=== PATIENT | female | born 1960 | race Caucasian/White ===

== ENCOUNTER 2017-03-07 10:06 | Emergency (ER) | payer BC ==
--- NOTE | 2017-03-07 11:46 | UC ---
Ear Complaint HPI - HPI Summary HPI Summary: 56 year old female presents with complains of right ear pain and sinus congestion. - History of Current Complaint Stated Complaint: RIGHT EAR COMPLAINT Time Seen by Provider: 03/07/17 11:46 Hx Obtained From: Patient Onset/Duration: Sudden Onset Severity Initially: Moderate Severity Currently: Moderate Pain Scale Used: 0-10 Numeric - 5 - Allergies/Home Medications Allergies/Adverse Reactions: Allergies Allergy/AdvReac Type Severity Reaction Status Date / Time Amoxicillin [From Augmentin] Allergy Intermediate Hives Verified 03/07/17 11:44 Clavulanic Acid Allergy Intermediate Hives Verified 03/07/17 11:44 [From Augmentin] PMH/Surg Hx/FS Hx/Imm Hx Previously Healthy: Yes - Surgical History Surgical History: Yes Surgery Procedure, Year, and Place: GALL BLADDER - Family History Known Family History: Positive: None - Social History Alcohol Use: Weekly Substance Use Type: None Smoking Status (MU): Never Smoked Tobacco Review of Systems Constitutional: Negative Skin: Negative Eyes: Negative ENT: Negative Respiratory: Negative Cardiovascular: Negative Gastrointestinal: Negative Genitourinary: Negative Motor: Negative Neurovascular: Negative Musculoskeletal: Negative Neurological: Negative Psychological: Negative All Other Systems Reviewed And Are Negative: Yes Physical Exam Triage Information Reviewed: Yes Appearance: Well-Appearing Vital Signs Reviewed: Yes Eye Exam: Normal ENT Exam: Normal ENT: Positive: Nasal congestion, Sinus tenderness Dental Exam: Normal Neck exam: Normal Neck: Positive: 1 Respiratory Exam: Normal Cardiovascular Exam: Normal Abdominal Exam: Normal Musculoskeletal Exam: Normal Neurological Exam: Normal Psychological Exam: Normal Skin Exam: Normal Ear Complaint Course/Dx - Differential Dx/Diagnosis Provider Diagnoses: right ear pain. sinusitis Discharge - Discharge Plan Condition: Stable Disposition: HOME Prescriptions: Azithromyxin PRABHU (NF) [Z-Prabhu (Zithromax) 250 mg tabs #6] 2 tab PO .TODAY, THEN 1 DAILY #6 tab Methylprednisolone [Medrol Dosepak 4 MG*] 4 mg PO .SEE PRABHU INSTRUCTION #21 tab Neomyc/Polym/HC 1% OTIC SUSP* [Cortisporin Otic Susp 1%*] 4 drop LEFT EAR QID # 1 btl Patient Education Materials: Earache (ED) Referrals: Elaine PEARL,Cory Canela [Primary Care Provider] - Lucio Baig MD [Medical Doctor] -
[2017-03-07 11:50] VITALS: BP 139/67
== END 2017-03-07 12:06 | disposition home or self-care (01) ==
LOC: UCCORT 10:06
DX: H92.01 Otalgia, right ear (principal); J32.9 Chronic sinusitis, unspecified; Z90.49 Acquired absence of other specified parts of digestive tract; Z88.1 Allergy status to other antibiotic agents
CPT/HCPCS: 99212; G0463

== ENCOUNTER 2017-06-26 07:09 | Emergency (ER) | payer BC ==
[2017-06-26 07:29] VITALS: BP 129/73
--- NOTE | 2017-06-26 07:39 | UC ---
Complaint Female HPI - HPI Summary HPI Summary: C/O UTI symptoms since tuesday night. Last UTI 2 years ago. Did take Azo 2 days ago. - History Of Current Complaint Stated Complaint: URINARY Time Seen by Provider: 06/26/17 07:17 Hx Obtained From: Patient Hx Last Menstrual Period: 06/13/17 ?: No Onset/Duration: Sudden Onset, Lasting Days - 2 Timing: Constant Severity Initially: Moderate Severity Currently: Moderate Pain Intensity: 5 Character: Burning, Cramping Aggravating Factor(s): Urination Associated Signs And Symptoms: Negative: Fever, Back Pain, Vaginal Discharge Related Hx: Similar Episode/Dx as: - UTI - Allergies/Home Medications Allergies/Adverse Reactions: Allergies Allergy/AdvReac Type Severity Reaction Status Date / Time amoxicillin Allergy Hives Verified 06/26/17 07:30 clavulanic acid Allergy Hives Verified 06/26/17 07:30 Home Medications: Home Medications Progesterone CAP (NF) [Prometrium (NF)] 100 mg PO DAILY 06/26/17 [History Confirmed 06/26/17] PMH/Surg Hx/FS Hx/Imm Hx Previously Healthy: Yes - Surgical History Surgical History: Yes Surgery Procedure, Year, and Place: GALL BLADDER. [place] teeth. D&C - Family History Known Family History: Positive: Cardiac Disease, Hypertension, Diabetes - Social History Occupation: Employed Full-time Lives: With Family Alcohol Use: Weekly Substance Use Type: None Smoking Status (MU): Never Smoked Tobacco Review of Systems Genitourinary: Dysuria, Hematuria, Frequency, Urgency Is Patient Immunocompromised?: No All Other Systems Reviewed And Are Negative: Yes Physical Exam Triage Information Reviewed: Yes Appearance: Well-Appearing, No Pain Distress, Well-Nourished Vital Signs: Initial Vital Signs Temp 98.1 F 06/26/17 07:21 Pulse 73 06/26/17 07:21 Resp 18 06/26/17 07:21 BP 129/73 06/26/17 07:21 Pulse Ox 100 06/26/17 07:21 Vital Signs Reviewed: Yes Eyes: Positive: Conjunctiva Clear Neck exam: Normal Respiratory Exam: Normal Cardiovascular Exam: Normal Abdomen Description: Positive: No Organomegaly, Soft. Negative: Nontender - mild suprapubic tenderness, CVA Tenderness (R), CVA Tenderness (L) Bowel Sounds: Positive: Present Musculoskeletal Exam: Normal Neurological Exam: Normal Psychological Exam: Normal Skin Exam: Normal Complaint Female Dx - Differential Dx/Diagnosis Differential Diagnosis/HQI/PQRI: Appendicitis, Ureteral Stone, Urinary Tract Infection Provider Diagnoses: Acute cystitis with hematuria Discharge - Sign-Out/Discharge Documenting (check all that apply): Discharge - Discharge Plan Condition: Stable Disposition: HOME Prescriptions: Sulfamethox/Trimethoprim DS* [Bactrim DS 800/160 TAB*] 1 tab PO BID #10 tab Patient Education Materials: Urinary Tract Infection in Women (ED), Sulfamethoxazole/Trimethoprim (By mouth) Referrals: Elaine PEARL,Cory Canela [Primary Care Provider] - - Billing Disposition and Condition Condition: STABLE Disposition: HOME
[2017-06-26] MEDS ORDERED: Sulfamethox/Trimethoprim DS 800/160* TAB PO ONE (07:44)
== END 2017-06-26 07:57 | disposition home or self-care (01) ==
LOC: UCCORT 07:09
DX: N30.01 Acute cystitis with hematuria (principal); Z88.3 Allergy status to other anti-infective agents; Z88.8 Allergy status to other drugs, medicaments and biological substances
CPT/HCPCS: 81003; 87077; 87086; 87186; 99212; A9270-GY; G0463

== ENCOUNTER 2018-06-26 08:08 | Emergency (ER) | payer BC ==
--- OUTSIDE RECORDS SUMMARY | 2018-06-26 08:36 | XMS REPORT | Continuity of Care Document ---
:1960 External Reference #:[id number] Author Name Yomaira Wheatley MD Address [address] [place] [address] Care Team Providers Name Role Phone Rocio Hardy C.N.M. Care Team Information Pediatric Allergist Unavailable Cory Henry M.D. Primary Care Physician Unavailable Payers Date Identification Numbers Payment Provider Subscriber Policy Number: [id number] [facility] [employer] Yuly Grub[employer] Name: [place] [address] [address] PayID: [id number] [place] [id number] Expires: 2016 Policy Number: [id number] [facility] Sumanth David PayID: [id number] [address] [address] [place] [id number] Advance Directives Description No Information Available Problems Active Problems Provider Date History of chronic urinary tract infection Yomaira Wheatley MD Onset: 02/2017 Candidal vulvovaginitis Yomaira Wheatley MD Onset: 02/06/2015 Urethral stricture Yomaira Wheatley MD Onset: 02/06/2015 Microscopic hematuria Yomaira Wheatley MD Onset: 02/06/2015 Pain in female genitalia on intercourse Yomaira Wheatley MD Onset: 2014 Nocturia Yomaira Wheatley MD Onset: 02/06/2015 Urgent desire to urinate Yomaira Wheatley MD Onset: 02/06/2015 Increased frequency of urination Yomaira Wheatley MD Onset: 02/06/2015 Atrophic vaginitis Yomaira Wheatley MD Onset: 02/06/2015 Family History Date Family Member(s) Observation Comments Mother Breast Cancer Mother High Blood Pressure Mother Heart Attack Social History Type Date Description Comments Sex Unknown Marital Status Patient is Occupation Outreach Clinician Tobacco Use Reviewed: 12/20/17 Never Smoked Cigarettes Smoking Status Reviewed: 06/22/18 Never Smoked Cigarettes ETOH Use Consumes 2 glasses of wine per week Allergies, Adverse Reactions, Alerts Active Allergies Reaction Severity Comments Date Augmentin 02/06/2015 Medications Active Medications SIG Qnty Indications Ordering Date Provider Estrace 1/4 gram to 42.500gm N95.2 Yomaira Frausto 02/06/2015 0.1mg/GM periurethral area MD Corry Cream daily Ibuprofen Unknown Progesterone Rex, Micronized [place] 200mg Capsules Estradiol Rex, [place] 0.05mg/24HR Patches Biweek Zyrtec Allergy 1 by mouth every Unknown 10mg day Capsules History Medications Premarin 1/4 gram to 30gm Yomaira Frausto 12/22/2017 - 0.625mg/GM periurethral area MD Corry 06/22/2018 Cream daily Ciprofloxacin HCL 1 by mouth twice a 6tabs Yomaira Frausto 06/29/2017 - 500mg day x 3 days MD Corry 12/07/2017 Tablets Fluconazole 1 by mouth today, 2tabs B37.3 Yomaira Frausto 02/06/2015 - 150mg repeat in 72 hours MD Corry 03/17/2015 Tablets Lorazepam Cory Henry, - 0.5mg Tablets M.D. 12/07/2017 Zolpidem Tartrate Cory Henry, - 10mg M.D. 06/18/2015 Tablets Abbi Allergy Unknown - 11/16/2016 Azelastine HCL Unknown - (Nasal) 12/07/2017 Immunizations Description No Information Available Vital Signs Date Vital Result Comment 12/20/2017 3:39pm Height 62 inches 5'2" Weight 130.00 lb Weight 58.968 kg BMI (Body Mass Index) 23.8 kg/m2 BP Systolic 120 mmHg BP Diastolic 68 mmHg 11/16/2016 3:23pm Height 62 inches 5'2" Weight 128.00 lb Weight 58.061 kg BMI (Body Mass Index) 23.4 kg/m2 BP Systolic 122 mmHg BP Diastolic 70 mmHg 02/06/2015 9:23am Height 62 inches 5'2" Weight 122.00 lb Weight 55.339 kg BMI (Body Mass Index) 22.3 kg/m2 BP Systolic 120 mmHg BP Diastolic 80 mmHg Results Test Date Facility Test Result H/L Range Note 230 Ua Routine 06/22/2018 [facility] Ua Glucose Negative REF TO DR ADDRESS ON ORDER FOR (315)- - Ua Protein Negative Ua Nitrite Negative Ua Leuko Negative Ua Blood Small * Ua Color Not Entered Ua Ketones Negative Ua Clarity Not Entered Ua Specific [place] 1.010 1.003-1.030 Ua PH 5.5 5.0-7.5 Ua Bilirubin Negative Ua Urobilinogen 0.2 E.U./dL 0.0-1.0 230 Ua Routine 12/20/2017 [facility] Ua Glucose Negative REF TO DR ADDRESS ON ORDER FOR (315)- - Ua Protein Negative Ua Nitrite Negative Ua Leuko Negative Ua Blood Small * Ua Color Not Entered Ua Ketones Negative Ua Clarity Not Entered Ua Specific [place] 1.010 1.003-1.030 Ua PH 6.5 5.0-7.5 Ua Bilirubin Negative Ua Urobilinogen 0.2 E.U./dL 0.0-1.0 230 Ua Routine 11/16/2016 [facility] Ua Glucose Negative REF TO DR ADDRESS ON ORDER FOR (315)- - Ua Protein Negative Ua Nitrite Negative Ua Leuko Negative Ua Blood Trace-intact * Ua Color Not Entered Ua Ketones Negative Ua Clarity Not Entered Ua Specific [place] <=1.005 1.003-1.030 Ua PH 5.5 5.0-7.5 Ua Bilirubin Negative Ua Urobilinogen 0.2 E.U./dL 0.0-1.0 230 Ua Routine 06/19/2015 [facility] Ua Glucose Negative REF TO DR ADDRESS ON ORDER FOR (315)- - Ua Protein Negative Ua Nitrite Negative Ua Leuko Negative Ua Blood Small * Ua Color Not Entered Ua Ketones Negative Ua Clarity Not Entered Ua Specifici [place] <=1.005 1.003-1.030 Ua PH 5.5 5.0-7.5 Ua Bilirubin Negative Ua Urobilinogen 0.2 E.U./dL 0.0-1.0 Urine Microscopy 03/18/2015 [facility] Urine WBC NEG /HPF 0 - 5 [address] [place], [place] [address] [phone] Urine RBC NEG /HPF 0-2 Bacteria NEG /HPF Neg Crystals NEG /HPF Neg Epithelial Cells 1+ /HPF Neg Sperm NEG /HPF Neg Yeast NEG /HPF Neg 230 Ua Routine 03/18/2015 [facility] Ua Glucose Negative REF TO DR ADDRESS ON ORDER FOR (315)- - Ua Protein Negative Ua Nitrite Negative Ua Leuko Negative Ua Blood Small * Ua Color Not Entered Ua Ketones Negative Ua Clarity Not Entered Ua Specific [place] <=1.005 1.003-1.030 Ua PH 5.5 5.0-7.5 Ua Bilirubin Negative Ua Urobilinogen 0.2 E.U./dL 0.0-1.0 Urine Microscopy 02/06/2015 [facility] Urine WBC 0-2 /HPF 0 - 5 [address] [place], [place] [id number] [phone] Urine RBC 0-2 /HPF 0-2 Bacteria RARE /HPF Neg Crystals NEG /HPF Neg Epithelial Cells RARE /HPF Neg Sperm NEG /HPF Neg Yeast NEG /HPF Neg 230 Ua Routine 02/06/2015 [facility] Ua Glucose Negative REF TO DR ADDRESS ON ORDER FOR (315)- - Ua Protein Negative Ua Nitrite Negative Ua Leuko Negative Ua Blood Small * Ua Color Not Entered Ua Ketones Negative Ua Clarity Not Entered Ua Specific [place] <=1.005 1.003-1.030 Ua PH 5.0 5.0-7.5 Ua Bilirubin Negative Ua Urobilinogen 0.2 E.U./dL 0.0-1.0 Procedures Date Code Description Status 02/06/2015 78278 Bladder Scan, Post Voiding Residual Urine Completed Encounters Type Date Location Provider Dx Diagnosis Office Visit 06/22/2018 Deisy Frausto Z87.440 Personal history 3:45p Urology MD Corry of urinary (tract) infections N95.2 Postmenopausal atrophic vaginitis R35.0 Frequency of micturition R35.1 Nocturia Office Visit 12/20/2017 3:20p Deisy Frausto [id number] Personal history Urology MD Corry of urinary (tract) infections N95.2 Postmenopausal atrophic vaginitis R35.0 Frequency of micturition R35.1 Nocturia Office Visit 11/16/2016 3:10p [facility]/ Juhi Frausto [id number] Personal history Urology MD Corry of urinary (tract) infections N95.2 Postmenopausal atrophic vaginitis R35.0 Frequency of micturition R35.1 Nocturia Office Visit 06/19/2015 1:15p [facility]/ Kaylyn.Cira Frausto R31.2 Other microscopic Urology MD Corry hematuria N95.2 Postmenopausal atrophic vaginitis R35.0 Frequency of micturition R39.15 Urgency of urination R35.1 Nocturia N94.1 Dyspareunia Office Visit 03/18/2015 2:45p [facility]/ Juhi Burnette W R31.2 Other microscopic Urology MD Corry hematuria N95.2 Postmenopausal atrophic vaginitis R35.0 Frequency of micturition R39.15 Urgency of urination R35.1 Nocturia N94.1 Dyspareunia N35.8 Other urethral stricture Office Visit 02/06/2015 9:00a [facility]/ Juhi Frausto N95.2 Postmenopausal Urology MD Corry atrophic vaginitis R35.0 Frequency of micturition R39.15 Urgency of urination R35.1 Nocturia N94.1 Dyspareunia R31.2 Other microscopic hematuria N35.8 Other urethral stricture B37.3 Candidiasis of vulva and vagina Plan of Treatment Future Appointment(s):06/28/2019 3:30 pm - Yomaira Wheatley MD at [facility]/ Juhi [id number]/22/2018 - Yomaira Wheatley [id number] Personal history of urinary (tract) infectionsComments:Continue vaginal estrogen cream. She knows to come in if she suspects a urinary tract nvqzhnvicS40.2 Postmenopausal atrophic vaginitisComments:She tried Premarin cream and did not like it. When it is time for a refill she wants brand name Estrace cream.Follow up:F/U 1 yearR35.0 Frequency of onsermrfyijN88.1 NocturiaComments:Continue vaginal estrogen creamAllComments:Patient is instructed to contact us if any questions, concerns, or problems at any time prior to scheduled follow-up appointment.
[2018-06-26 08:41] VITALS: BP 113/58
--- NOTE | 2018-06-26 09:00 | UC ---
Bite Injury/Animal HPI - HPI Summary HPI Summary: Pt presents to after finding a tick on her left leg this morning. Tick was not there yesteday. pt removed without difficulty - brought to . Alive No other complaints Not immunocompromised unknown last tetanus - pt did travel to [place] 4 years ago. MEdications reviewed - History of Current Complaint Chief Complaint: Sim Stated Complaint: TICK BITE Time Seen by Provider: 06/26/18 08:44 Hx Obtained From: Patient Hx Last Menstrual Period: 06/13/17 Pain Intensity: 0 - Allergies/Home Medications Allergies/Adverse Reactions: Allergies Allergy/AdvReac Type Severity Reaction Status Date / Time amoxicillin Allergy Hives Verified 06/26/18 08:35 clavulanic acid Allergy Hives Verified 06/26/18 08:35 PMH/Surg Hx/FS Hx/Imm Hx Previously Healthy: Yes - Surgical History Surgical History: Yes Surgery Procedure, Year, and Place: GALL BLADDER. [place] teeth. D&C - Family History Known Family History: Positive: Cardiac Disease, Hypertension, Diabetes, Non- Contributory - Social History Occupation: Employed Full-time Lives: With Family Alcohol Use: Occasionally Substance Use Type: None Smoking Status (MU): Never Smoked Tobacco Review of Systems All Other Systems Reviewed And Are Negative: Yes Skin: Positive: Other - tick bite Is Patient Immunocompromised?: No Physical Exam - Summary Physical Exam Summary: Vital Signs Reviewed: Yes A+Ox3, no distress Eyes: Conjunctiva Clear ENT: Hearing grossly normal neck: supple Respiratory: Positive: No respiratory distress, No accessory muscle use Cardiovascular: skin color reflect adequate perfusion Musculoskeletal Exam: WOODY x 4 without difficulty Neurological: Positive: Alert, ambulatory without difficulty Psychological: Positive: Normal Response To Family Skin: Positive: 2mm wound left low leg, no bleeding - no apparent retained part under lighted magnification. pt removed tick brought to - not engorged, intact Triage Information Reviewed: Yes Vital Signs: Initial Vital Signs Temp 97.8 F 06/26/18 08:36 Pulse 64 06/26/18 08:36 Resp 15 06/26/18 08:36 BP 113/58 06/26/18 08:36 Pulse Ox 100 06/26/18 08:36 Bite Injury Course/Dx - Course Course Of Treatment: Patient presents for evaluation of a wound after removing a tick that she notices morning. Patient states she knows it was not there yesterday. Patient with a take with her. Take is not engorged. Wound is clean dry and intact. No apparent retained parts. Discussed with patient wound care. Patient unsure last tetanus. I did call patient's PCP had to leave a message waiting for call back. After discussion patient decided she would leave and will follow up with her primary. Discussed with patient prophylaxis for Lyme disease. Patient's preference is not to have it. I don't believe indicated today's tick was not engorged patient is not immunocompromised and was attached for less than 24 hours. Patient comfortable in agreement with plan. Discussed with patient Lymes Syndrome. She will be discharged home - Differential Dx/Diagnosis Provider Diagnosis: Tick bite of calf Discharge - Sign-Out/Discharge Documenting (check all that apply): Patient Departure All imaging exams completed and their final reports reviewed: No Studies - Discharge Plan Condition: Stable Disposition: HOME Patient Education Materials: Tick Bite (ED) Referrals: Elaine PEARL,Cory Canela [Primary Care Provider] - Additional Instructions: Keep area clean and dry Check yourself daily for ticks after you have been working in the [place] Contact your doctor or return with questions or concerns Approach to prophylaxis : According to the Infectious Diseases Society of [place] (IDSA) guidelines that recommend antibiotic prophylaxis only in patients who meet all of the following criteria: 1. Attached tick identified as an adult or nymphal I. scapularis tick (deer tick). 2. Tick is estimated to have been attached for 48 hours (by degree of engorgement or time of exposure). 3. Prophylaxis is begun within 72 hours of tick removal. Local rate of infection of ticks with B. burgdorferi is 20 percent if attached for over 48 hours (these rates of infection have been shown to occur in parts of [place], parts of the [facility], and parts of [place] and [place]). If you experience a tick and time of attachment is believed to be less than 48 hours, you may remove the tick with head intact and no need for prophylaxis. If over 48 hours, please come into UC. Prophylactic doxycycline is not recommended for ticks attached less than 48 hours. As discussed - contact your primary care office regarding the status of your tetanus vaccination - Billing Disposition and Condition Condition: STABLE Disposition: Home
== END 2018-06-26 09:12 | disposition home or self-care (01) ==
LOC: UCCORT 08:08
DX: S80.862A Insect bite (nonvenomous), left lower leg, initial encounter (principal); Z88.0 Allergy status to penicillin; W57.XXXA Bitten or stung by nonvenomous insect and other nonvenomous arthropods, initial encounter; Y92.9 Unspecified place or not applicable
CPT/HCPCS: 99211; G0463